=== PATIENT | female | born 2000 | race Two or more races ===

== ENCOUNTER 2021-03-16 15:50 | Emergency (ER) | payer OTHER ==
[~2021-03-16] VITALS: Ht 172.7 cm; Wt 74.4 kg
[2021-03-16] MEDS ORDERED: CEPH500C PO (16:03)
[2021-03-16] MEDS ORDERED: IBUP-1022 PO (16:03)
[2021-03-16] MEDS ORDERED: LIDOCAINE W/EPINEPHRINE 1% 20ML VIAL SC ONE (19:50)
[2021-03-16] MEDS ORDERED: BACTRIM 160MG/800MG DS TAB PO ONE (20:50)
[2021-03-16] MEDS ORDERED: IBUPROFEN 800 MG TAB PO ONE (20:50)
[2021-03-16] MEDS ORDERED: BACT800T5 PO (20:54)
[2021-03-16] MEDS ORDERED: IBUP80TA PO (20:54)
[2021-03-16 21:49] VITALS: BP 110/51
== END 2021-03-16 21:50 | disposition home or self-care (01) ==
LOC: M ED 15:50
DX: L05.01 Pilonidal cyst with abscess (principal); L03.319 Cellulitis of trunk, unspecified; F17.200 Nicotine dependence, unspecified, uncomplicated; F12.10 Cannabis abuse, uncomplicated

== ENCOUNTER 2021-04-11 09:02 | Day surgery (SDC) | payer OTHER ==
[~2021-04-11] VITALS: Ht 172.7 cm; Wt 72.6 kg
[~2021-04-11 09:02] MED LIST: BACT800T5 PO; CEPH500C PO; EMLA CREAM 5GM TUBE (LIDOCAINE/PRILOCAINE) TOP PRN; IBUP-1022 PO; IBUP80TA PO; LIDOCAINE 1% MDV 20ML VIAL SQ PRN; LR 1,000 ML IV ONE; VITAD400CA PO; VITMTA PO; [UNRECOGNIZED DRUG - OTHER] PO
[2021-04-11] MEDS ORDERED: MIDAZOLAM INJ 2MG/2ML VIAL (J2250 PER 1MG) As Ordered ONE (10:04)
[2021-04-11] MEDS ORDERED: fentaNYL 100 MCG/2 ML INJECTION (J3010) As Ordered ONE (10:04)
[2021-04-11] MEDS ORDERED: ONDANSETRON 4MG/2ML VIAL As Ordered ONE (10:04)
[2021-04-11] MEDS ORDERED: propofoL 200 MG/20 ML VIAL As Ordered ONE (10:05)
[2021-04-11] MEDS ORDERED: LIDOCAINE 2% 100MG/5ML SDV (FOR ANES.) As Ordered ONE (10:05)
[2021-04-11] MEDS ORDERED: NORCO, ANEXSIA 5/325MG TABLET (HYDROcodone/ACETAMINOPHEN) PO PRN (12:00)
[2021-04-11] MEDS ORDERED: LR 1,000 ML IV SCH (12:00)
[2021-04-11] MEDS ORDERED: fentaNYL 100 MCG/2 ML INJECTION (J3010) IV PRN (12:00)
[2021-04-11] MEDS ORDERED: MEPERIDINE INJ 25 MG/ML VIAL (J2175) IV PRN (12:00)
[2021-04-11] MEDS ORDERED: ONDANSETRON 4MG/2ML VIAL IV PRN (12:00)
[2021-04-11] MEDS ORDERED: oxyCODONE 5MG TAB PO PRN (12:00)
--- NOTE | 2021-04-11 12:34 | RO ---
OPERATIVE NOTE DATE OF OPERATION: 04/11/2021 PREOPERATIVE DIAGNOSIS: Pilonidal cyst. POSTOPERATIVE DIAGNOSIS: Pilonidal cyst. PROCEDURE: Pilonidal cystectomy. SURGEON: Odilon Hidalgo DO ELECT[employer]IC MULE DRIVER: None. ANESTHESIA: IV sedation with spinal. EBL: 5. COMPLICATIONS: None. INDICATIONS FOR PROCEDURE: The patient is a 20-year-old female who presents with pilonidal cyst that was recently infected. She requested to have it removed. Risks and benefits of the procedure not limited to but including bleeding, infection, damage to surrounding structures, need for further surgery were discussed in detail with the patient and informed consent was obtained. Procedure was planned. DESCRIPTION OF PROCEDURE: The patient was brought back to operating room 2. After sufficient sedation the presacral area was sterilely prepped and draped with Betadine. Time out was done confirming proper patient, proper procedure. An elliptical incision was made around the sinus tract openings as well as the cyst that was located just to the right of the gluteal cleft. The incision was made, cautery was used to circumferentially dissect down to the level of the presacral fascia. The cyst and sinus tracts were all removed intact as one specimen. The wound was cauterized to control hemostasis. It was irrigated and then packed with 4 x 4s and covered with gauze and tape thus ending the procedure. The patient tolerated the procedure well and was sent to PACU in stable condition.
[2021-04-11 13:30] VITALS: BP 106/58
== END 2021-04-11 14:02 | disposition home or self-care (01) ==
LOC: M SDC 09:02
PROVIDERS: ATTEND Surgery
DX: L05.91 Pilonidal cyst without abscess (principal); F32.81 Premenstrual dysphoric disorder; F17.290 Nicotine dependence, other tobacco product, uncomplicated
CPT/HCPCS: 11770; 81025; 88304; J2250; J2405; J3010